=== PATIENT | male | born 1960 | race African-American/Black ===

== ENCOUNTER 2016-10-25 15:51 | Inpatient (IN) | payer OTHER ==
[~2016-10-25] VITALS: Ht 180.3 cm; Wt 107.5 kg
[~2016-10-25 15:51] MED LIST: ASPIR-TRIN325 M1 PO; Ecotrin PO; MOTRIN800 MG PO; NOHOMEMEDS; PREDNISONE20 MG PO; TESSALON PERLE100 MG PO; ULTRAM50 MG PO; ZITHROMAX Z-PA250 MG PO
[2016-10-25 16:25] LABS: HEMATOCRIT 33.5 % (38.0-50.0); MCH 29.5 PG (29.0-34.0); MCHC 34.6 G/DL (30.0-36.0); MCV 85.2 FL (86-99); MEAN PLAT.VOLUME 9.5 uM^3 (9.0-12.4); PLATELET COUNT 316 K/uL (156-360); RBC DIS.WIDTH-CV 12.1 % (11.8-14.6); RBC DIS.WIDTH-SD 37.1 % (39-53); RED BLOOD COUNT 3.93 M/uL (4.00-5.50)
[2016-10-25 16:34] LABS: CHLORIDE 104 mEq/L (99-109); SODIUM 140 mEq/L (136-147)
[2016-10-25 16:36] LABS: GLUCOSE 109 mg/dL (70-99)
[2016-10-25 16:38] LABS: ANION GAP 12 MEQ/L (2-14)
[2016-10-25 16:40] LABS: GFR ESTIMATE (CALCULATED) > 59 mL/min/
[2016-10-25 16:41] LABS: UREA NITROGEN (BUN) 19 mg/dL (9-23)
[2016-10-25 16:47] LABS: TROP-I INTERPRETATION NEGATIVE; TROPONIN-I < 0.01 ng/mL (0.0-0.30)
[2016-10-25 16:48] LABS: D-DIMER ELISA > 4.00 mg/L FEU (< 0.57)
[2016-10-25] MEDS ORDERED: OXYCODONE HCL5 MG PO (18:03)
[2016-10-25] MEDS ORDERED: ASPIR-LOW81 MG PO (18:04)
[2016-10-25] MEDS ORDERED: AMLODIPINE BESYL5 MG PO (18:04)
[2016-10-25] MEDS ORDERED: STOOL SOFTENER1 EAC2 PO (18:05)
[2016-10-25 18:14] LABS: PROTHROMBIN TIME 10.3 (9.2-11.2); PTT 25.9 (25-32)
[2016-10-25 22:00] VITALS: BP 152/79
[2016-10-25 22:05] VITALS: BP 152/79
[2016-10-26] VITALS (7 sets, daily range): BP systolic 127–157; BP diastolic 71–89
[2016-10-26 02:06] LABS: HEMATOCRIT 31.3 % (38.0-50.0); MCH 29.9 PG (29.0-34.0); MCHC 34.8 G/DL (30.0-36.0); MCV 85.8 FL (86-99); MEAN PLAT.VOLUME 9.4 uM^3 (9.0-12.4); PLATELET COUNT 316 K/uL (156-360); RBC DIS.WIDTH-CV 12.3 % (11.8-14.6); RBC DIS.WIDTH-SD 38.1 % (39-53); RED BLOOD COUNT 3.65 M/uL (4.00-5.50); WHITE BLOOD COUNT 13.4 K/uL (4.1-10.2)
[2016-10-26 02:17] LABS: CHLORIDE 102 mEq/L (99-109); POTASSIUM 3.6 mEq/L (3.7-5.4); PROTHROMBIN TIME 10.4 (9.2-11.2); PTT 34.8 (25-32); SODIUM 135 mEq/L (136-147)
[2016-10-26 02:19] LABS: GLUCOSE 108 mg/dL (70-99)
[2016-10-26 02:20] LABS: ANION GAP 10 MEQ/L (2-14)
[2016-10-26 02:21] LABS: TOTAL BILIRUBIN 1.3 mg/dL (0.0-1.0)
[2016-10-26 02:22] LABS: ALKALINE PHOSPHATASE 43 IU/L (3-129)
[2016-10-26 02:23] LABS: GFR ESTIMATE (CALCULATED) > 59 mL/min/
[2016-10-26 02:24] LABS: UREA NITROGEN (BUN) 18 mg/dL (9-23)
[2016-10-27 05:15] VITALS: BP 151/86
[2016-10-27 05:53] LABS: HEMATOCRIT 32.5 % (38.0-50.0); MCH 29.3 PG (29.0-34.0); MCHC 33.5 G/DL (30.0-36.0); MCV 87.4 FL (86-99); MEAN PLAT.VOLUME 9.6 uM^3 (9.0-12.4); PLATELET COUNT 327 K/uL (156-360); RBC DIS.WIDTH-CV 12.6 % (11.8-14.6); RBC DIS.WIDTH-SD 39.6 % (39-53); RED BLOOD COUNT 3.72 M/uL (4.00-5.50); WHITE BLOOD COUNT 11.1 K/uL (4.1-10.2)
[2016-10-27 08:19] VITALS: BP 134/74
[2016-10-27 08:25] LABS: ANION GAP 11 MEQ/L (2-14); CHLORIDE 101 MEQ/L (99-109); POTASSIUM 3.9 MEQ/L (3.7-5.4); SAMPLE HEMOLYSIS CHECK 0; SAMPLE ICTERIC CHECK 0; SAMPLE LIPEMIA CHECK 0; SODIUM 136 MEQ/L (136-147)
[2016-10-27 08:31] LABS: GFR ESTIMATE (CALCULATED) > 59 mL/min/; GLUCOSE 95 mg/dL (70-99); UREA NITROGEN (BUN) 16 mg/dL (9-23)
[2016-10-27 12:33] VITALS: BP 135/78
[2016-10-27 16:38] VITALS: BP 135/74
[2016-10-27 20:10] VITALS: BP 155/79
[2016-10-27 23:58] VITALS: BP 145/90
[2016-10-28 04:19] VITALS: BP 143/82
[2016-10-28 06:05] LABS: LUPA PHOSPHOLIPID NEUTRALIZ Negative (Negative)
[2016-10-28 08:28] VITALS: BP 138/86
[2016-10-28 08:30] LABS: INTER. NORMALIZED RATIO 1.1; PROTHROMBIN TIME 10.7 (9.2-11.2); PTT 67.6 (25-32)
[2016-10-28 11:20] VITALS: BP 124/78
[2016-10-28 16:00] VITALS: BP 139/74
[2016-10-28 20:13] VITALS: BP 153/83
[2016-10-29 00:02] VITALS: BP 158/66
[2016-10-29 05:36] LABS: BASOPHIL COUNT 0.1 K/uL (0-0.1); EOSINOPHIL (%) 4.7 % (0-5); EOSINOPHIL COUNT 0.5 K/uL (0-0.3); HEMATOCRIT 30.5 % (38.0-50.0); IMMATURE GRANULOCYTE (%) 2.8 % (0.0-0.7); IMMATURE GRANULOCYTE COUNT 0.3 K/uL; INSTRUMENT ABS NEUTROPHIL CT 7.4 K/uL; LYMPHOCYTE COUNT 1.7 K/uL (1.0-2.8); MCH 28.9 PG (29.0-34.0); MCHC 33.1 G/DL (30.0-36.0); MCV 87.1 FL (86-99); MEAN PLAT.VOLUME 8.9 uM^3 (9.0-12.4); MONOCYTE (%) 9.4 % (3-12); NEUTROPHIL (%) 67.1 % (45-76); NEUTROPHIL COUNT 7.4 K/uL (1.8-6.4); PLATELET COUNT 332 K/uL (156-360); RBC DIS.WIDTH-CV 12.9 % (11.8-14.6); RBC DIS.WIDTH-SD 40.1 % (39-53)
[2016-10-29 05:59] LABS: ANION GAP 9 MEQ/L (2-14); CHLORIDE 104 MEQ/L (99-109); GFR ESTIMATE (CALCULATED) > 59 mL/min/; GLUCOSE 99 mg/dL (70-99); POTASSIUM 4.3 MEQ/L (3.7-5.4); SAMPLE HEMOLYSIS CHECK 0; SAMPLE ICTERIC CHECK 0; SAMPLE LIPEMIA CHECK 0; SODIUM 136 MEQ/L (136-147); UREA NITROGEN (BUN) 11 mg/dL (9-23)
[2016-10-29 08:01] VITALS: BP 132/86
[2016-10-29 09:39] VITALS: BP 141/79
[2016-10-29 10:44] VITALS: BP 142/84
[2016-10-29] MEDS ORDERED: ELIQUIS5 MG PO (12:03)
[2016-10-29 12:26] VITALS: BP 150/82
[2016-11-01 18:33] LABS: DRVVT Mixing Study Interp Not Indicated (()); PROTEIN C FUNCTIONAL ACTIVITY+ 85 % (70-180); PTT-LA 38 sec (<=40); Protein S, Free 78 % normal (57-171); dRVVT Screen 46 sec (<=45)
[2016-11-02 08:34] LABS: ANTITHROMBIN III ACTIVITY+ 96 % activi (80-120)
== END 2016-10-29 16:45 | DRG 176 ==
LOC: EME 15:51 → 3EAST 20:27 → EDOF 20:27 → 3EAST 21:17
PROVIDERS: Emergency Medicine; Internal Medicine; Student in an Organized Health Care Education/Training Program
DX: I27.82 Chronic pulmonary embolism (principal); E04.1 Nontoxic single thyroid nodule; I10 Essential (primary) hypertension; K74.60 Unspecified cirrhosis of liver; Z96.651 Presence of right artificial knee joint; R00.0 Tachycardia, unspecified; J84.10 Pulmonary fibrosis, unspecified; E66.9 Obesity, unspecified; D50.9 Iron deficiency anemia, unspecified; M19.90 Unspecified osteoarthritis, unspecified site; L98.8 Other specified disorders of the skin and subcutaneous tissue; Z68.33 Body mass index [BMI] 33.0-33.9, adult; Z87.891 Personal history of nicotine dependence; Z79.82 Long term (current) use of aspirin
CPT/HCPCS: 71020; 71275; 80048; 80053; 81240 90; 82728; 83090 90; 84443; 84484; 85025; 85027; 85240 90; 85300 90; 85303 90; 85305 90; 85306 90; 85307 90; 85379; 85610; 85613 90; 85730; 85730 90; 86146 90; 86147 90; 87070; 87075; 87205; 93005; 93970; 99281; 99285

== ENCOUNTER 2016-12-02 23:43 | Emergency (ER) | payer OTHER ==
[~2016-12-02] VITALS: Ht 182.9 cm; Wt 107.6 kg
[~2016-12-02 23:43] MED LIST changes: +AMLODIPINE BESYL5 MG PO; +ASPIR-LOW81 MG PO; +ELIQUIS5 MG PO; +OXYCODONE HCL5 MG PO; +STOOL SOFTENER1 EAC2 PO
[2016-12-03 00:43] LABS: HEMATOCRIT 44.5 % (38.0-50.0); MCH 29.5 PG (29.0-34.0); MCHC 33.7 G/DL (30.0-36.0); MCV 87.4 FL (86-99); MEAN PLAT.VOLUME 9.4 uM^3 (9.0-12.4); PLATELET COUNT 286 K/uL (156-360); RBC DIS.WIDTH-CV 12.4 % (11.8-14.6); RBC DIS.WIDTH-SD 39.9 % (39-53)
[2016-12-03 00:46] LABS: RED BLOOD COUNT 5.09 M/uL (4.00-5.50); WHITE BLOOD COUNT 9.6 K/uL (4.1-10.2)
[2016-12-03 00:55] LABS: CHLORIDE 106 mEq/L (99-109); SODIUM 139 mEq/L (136-147)
[2016-12-03 00:57] LABS: GLUCOSE 101 mg/dL (70-99)
[2016-12-03 00:58] LABS: ANION GAP 9 MEQ/L (2-14)
[2016-12-03 01:00] LABS: GFR ESTIMATE (CALCULATED) > 59 mL/min/
[2016-12-03 01:01] LABS: UREA NITROGEN (BUN) 16 mg/dL (9-23)
[2016-12-03 01:40] LABS: PROTHROMBIN TIME 10.2 (9.2-11.2); PTT 28.5 (25-32)
[2016-12-03 01:54] LABS: TROP-I INTERPRETATION NEGATIVE; TROPONIN-I < 0.01 ng/mL (0.0-0.30)
[2016-12-03 03:33] VITALS: BP 136/100
== END 2016-12-03 03:33 | disposition home or self-care (01) ==
LOC: EME 23:43
PROVIDERS: Emergency Medicine
DX: I26.99 Other pulmonary embolism without acute cor pulmonale (principal); I10 Essential (primary) hypertension; F11.10 Opioid abuse, uncomplicated; F10.10 Alcohol abuse, uncomplicated; B19.10 Unspecified viral hepatitis B without hepatic coma; B19.20 Unspecified viral hepatitis C without hepatic coma; K74.60 Unspecified cirrhosis of liver; Z79.01 Long term (current) use of anticoagulants; Z87.891 Personal history of nicotine dependence; Z96.659 Presence of unspecified artificial knee joint
CPT/HCPCS: 71020; 71275; 80048; 84484; 85027; 85610; 85730; 93005; 99281; 99285

== ENCOUNTER 2017-06-08 09:41 | Emergency (ER) | payer OTHER ==
[~2017-06-08] VITALS: Ht 182.9 cm; Wt 98.9 kg
[2017-06-08 10:08] LABS: BASOPHIL COUNT 0.1 K/uL (0-0.1); EOSINOPHIL (%) 2.6 % (0-5); EOSINOPHIL COUNT 0.3 K/uL (0-0.3); HEMATOCRIT 45.7 % (38.0-50.0); IMMATURE GRANULOCYTE (%) 0.5 % (0.0-0.7); IMMATURE GRANULOCYTE COUNT 0.1 K/uL; INSTRUMENT ABS NEUTROPHIL CT 7.9 K/uL; LYMPHOCYTE COUNT 1.6 K/uL (1.0-2.8); MCH 29.6 PG (29.0-34.0); MCHC 34.4 G/DL (30.0-36.0); MCV 86.2 FL (86-99); MEAN PLAT.VOLUME 9.4 uM^3 (9.0-12.4); MONOCYTE (%) 8.2 % (3-12); MONOCYTE COUNT 0.9 K/uL (0-0.8); NEUTROPHIL (%) 73.1 % (45-76); NEUTROPHIL COUNT 7.9 K/uL (1.8-6.4); PLATELET COUNT 201 K/uL (156-360); RBC DIS.WIDTH-CV 12.3 % (11.8-14.6); RBC DIS.WIDTH-SD 38.4 % (39-53); WHITE BLOOD COUNT 10.7 K/uL (4.1-10.2)
[2017-06-08 10:19] LABS: CHLORIDE 106 mEq/L (99-109); POTASSIUM 3.4 mEq/L (3.7-5.4); SODIUM 139 mEq/L (136-147)
[2017-06-08 10:20] LABS: INTER. NORMALIZED RATIO 1.1; MAGNESIUM 2.3 mg/dL (1.3-2.7); PROTHROMBIN TIME 12.3 SEC (10.2-12.9)
[2017-06-08 10:22] LABS: GLUCOSE 98 mg/dL (70-99)
[2017-06-08 10:23] LABS: ANION GAP 9 MEQ/L (2-14); PTT 27.9 SEC (25-37)
[2017-06-08 10:24] LABS: TOTAL BILIRUBIN 0.9 mg/dL (0.0-1.0)
[2017-06-08 10:25] LABS: ALKALINE PHOSPHATASE 70 IU/L (3-129); SERUM ETHYL ALCOHOL < 10 mg/dL
[2017-06-08 10:26] LABS: GFR ESTIMATE (CALCULATED) > 59 mL/min/
[2017-06-08 10:27] LABS: UREA NITROGEN (BUN) 16 mg/dL (9-23)
[2017-06-08 10:29] LABS: CREATINE KINASE 1398 IU/L (1-294); TOTAL CK 1398 IU/L (1-294)
[2017-06-08 10:36] LABS: CK-MB 42.6 ng/mL (0.0-4.9); TROP-I INTERPRETATION NEGATIVE; TROPONIN-I < 0.01 ng/mL (0.0-0.30)
[2017-06-08 12:52] LABS: ADD MIUA? NO; BILIRUBIN NEGATIVE; BLOOD NEGATIVE; COLOR YELLOW ((YELLOW)); GLUCOSE (STRIP) NEGATIVE; KETONES NEGATIVE; LEUKOCYTES NEGATIVE; NITRITE NEGATIVE; PROTEIN (STRIP) NEGATIVE; UCUL ADDED? NO; UROBILINOGEN 0.2 MG/DL (0.2-1.0)
[2017-06-08 13:07] LABS: SPECIFIC GRAVITY 1.063 (1.000-1.030)
[2017-06-08 13:09] LABS: COCAINE PRESUMPTIVE POSITIVE (150 ng/mL); PHENCYCLIDINE NEGATIVE (25 ng/mL); THC CANNABINOIDS NEGATIVE (50 ng/mL)
[2017-06-08 13:10] LABS: ADD MEDTOX COMMENT Y; AMPHETAMINE NEGATIVE (500 ng/mL); BARBITURATES NEGATIVE (200 ng/mL); BENZODIAZEPINES NEGATIVE (150 ng/mL); INTERNAL CONTROLS VALID? YES; METHADONE NEGATIVE (200 ng/mL); METHAMPHETAMINE NEGATIVE (500 ng/mL); OPIATES (MORPHINE) NEGATIVE (100 ng/mL); OXYCODONE NEGATIVE (100 ng/mL); PROPOXYPHENE NEGATIVE (300 ng/mL); TRICYCLIC ANTIDEPRESSANTS NEGATIVE (300 ng/mL)
[2017-06-08] MEDS ORDERED: MOTRIN800 MG PO (13:32)
[2017-06-08 14:10] VITALS: BP 153/94
== END 2017-06-08 14:29 | disposition home or self-care (01) ==
LOC: EME 09:41
PROVIDERS: Emergency Medicine
DX: R55 Syncope and collapse (principal); F14.10 Cocaine abuse, uncomplicated; R10.9 Unspecified abdominal pain; M54.2 Cervicalgia; S91.115A Laceration without foreign body of left lesser toe(s) without damage to nail, initial encounter; S40.212A Abrasion of left shoulder, initial encounter; S20.312A Abrasion of left front wall of thorax, initial encounter; S80.812A Abrasion, left lower leg, initial encounter; W10.9XXA Fall (on) (from) unspecified stairs and steps, initial encounter; J32.9 Chronic sinusitis, unspecified; K42.9 Umbilical hernia without obstruction or gangrene; K57.30 Diverticulosis of large intestine without perforation or abscess without bleeding; Z86.711 Personal history of pulmonary embolism; Z79.01 Long term (current) use of anticoagulants; Z79.82 Long term (current) use of aspirin; I10 Essential (primary) hypertension; Z72.0 Tobacco use
CPT/HCPCS: 70450; 71010; 72125; 74177; 80053; 81003; 82550; 82550 91; 82553; 83735; 84484; 84999; 85025; 85610; 85730; 99281; 99285; G0480; J7030; J7040